=== PATIENT | female | born 1970 | race Caucasian/White ===

== ENCOUNTER 2023-02-22 19:35 | Emergency (ER) | payer MEDICARE, OTHER ==
[2023-02-22] MEDS ORDERED: MORPHINE SULFATE 4 MG/ML SYRINGE IVP STA (20:13)
[2023-02-22 21:06] LABS: Albumin 3.7 g/dL (3.5-5.0); Calcium 8.6 mg/dL (8.4-10.2); Potassium 3.8 mmol/L (3.5-5.1); Total Bilirubin 0.5 mg/dL (0.2-1.3); Total Protein 6.9 g/dL (6.3-8.2)
--- NOTE | 2023-02-22 21:26 | ED ---
Lower Extremity Injury HPI - General Chief Complaint: Extremity Injury, Lower Stated Complaint: Recheck Time Seen by Provider: 02/22/23 19:56 Source: patient Mode of arrival: wheelchair Limitations: no limitations - History of Present Illness Initial Comments: Patient is a 52-year-old female presenting with chief complaint of right foot and great toe pain. Patient states that yesterday she noticed a small area of redness to the great toe, today redness and pain has spread. She also notes swelling to the foot. She denies any known injury or trauma. No fevers or chills. She did have an episode of vomiting today. Patient has been experienc ing bilateral numbness and tingling over the last month. - Related Data Home Medications Medication Instructions Recorded Confirmed DULoxetine HCL [Cymbalta] 60 mg PO DAILY 02/22/23 02/22/23 Famotidine 40 mg PO DAILY PRN 02/22/23 02/22/23 Ibuprofen [Advil] 200 mg PO Q8HR PRN 02/22/23 02/22/23 LORazepam [Ativan] 1 mg PO BID 02/22/23 02/22/23 Levothyroxine Sodium [Synthroid] 150 mcg PO AC-BRKFST 02/22/23 02/22/23 Multivitamins, Thera [Multivitamin 1 tab PO DAILY 02/22/23 02/22/23 (formulary)] Rosuvastatin [Crestor] 10 mg PO DAILY 02/22/23 02/22/23 Allergies Allergy/AdvReac Type Severity Reaction Status Date / Time Penicillins Allergy Rash/Hives Verified 02/22/23 21:39 Review of Systems ROS Statement: Those systems with pertinent positive or pertinent negative responses have been documented in the HPI. ROS Other: All systems not noted in ROS Statement are negative. Past Medical History Past Medical History: Hyperlipidemia, Thyroid Disorder History of Any Multi-Drug Resistant Organisms: None Reported Past Surgical History: Back Surgery, Ear Surgery, Hysterectomy, Orthopedic Surgery Additional Past Surgical History / Comment(s): lt elbow,lt foot Past Psychological History: Anxiety Smoking Status: Former smoker Past Alcohol Use History: None Reported Past Drug Use History: None Reported General Exam Limitations: no limitations General appearance: alert, in no apparent distress Head exam: Present: atraumatic, normocephalic, normal inspection Eye exam: Present: normal appearance, EOMI. Absent: periorbital swelling Neck exam: Present: normal inspection, full ROM Respiratory exam: Present: normal lung sounds bilaterally. Absent: respiratory distress, wheezes, rales, rhonchi, stridor Cardiovascular Exam: Present: regular rate, normal rhythm, normal heart sounds. Absent: systolic murmur, diastolic murmur, rubs, gallop, clicks Right Foot/Toe exam: Present: tenderness, swelling, erythema Neurological exam: Present: alert, oriented X3, CN II-XII intact Psychiatric exam: Present: normal affect, normal mood Skin exam: Present: erythema (Right great toe and distal third of foot) Course Vital Signs 02/22/23 02/23/23 02/23/23 19:44 00:00 00:18 Temperature 97.9 F 97.6 F Pulse Rate 95 90 Respiratory 10 L 18 Rate Blood Pressure 132/84 161/90 O2 Sat by Pulse 100 94 L 96 Oximetry 02/23/23 02/23/23 02/23/23 00:25 00:32 00:38 Temperature 97.7 F 98.3 F 98.5 F Pulse Rate 92 92 97 Respiratory 18 18 18 Rate Blood Pressure 142/92 158/92 166/78 O2 Sat by Pulse 98 99 99 Oximetry 02/23/23 02/23/23 02/23/23 01:08 01:39 02:50 Temperature 97.8 F 97.8 F Pulse Rate 95 100 81 Respiratory 18 18 18 Rate Blood Pressure 163/95 137/93 135/80 O2 Sat by Pulse 100 100 99 Oximetry 02/23/23 03:30 Temperature Pulse Rate 76 Respiratory Rate Blood Pressure 132/94 O2 Sat by Pulse 96 Oximetry Medical Decision Making - Medical Decision Making Patient is a 52-year-old female presenting with chief complaint of atraumatic right foot pain. It started yesterday and was worsening today. On physical examination there is redness to the great toe as well as the distal portion of the foot. Tenderness to palpation. She describes to me that she has had progressive numbness of the bilateral feet and wounds which take months to heal. Lab work showed hemoglobin of 4.9, CBC 14.0. Hematocrit 18.4. CRP 20.8 and ESR 60. X-ray shows no evidence of osteomyelitis. Upon further questioning patient states that she takes 10 abdomen today for chronic pain. Suspect occult bleed. No other active bleeding at this time, denies vaginal bleeding, hematuria, rectal bleeding. CT of the abdomen and pelvis with contrast shows no acute process. We do not have GI services at this time. I spoke with Dr. Marcus from [facility] who accepted transfer. Patient is agreeable with this plan. I discussed this case with my attending Dr. Styles. Was pt. sent in by a medical professional or institution (, PA, EAR MOLD LABORATORY TECHNICIAN, urgent care, hospital, or fpc...) When possible be specific @ -No Did you speak to anyone other than the patient for history (EMS, parent, family, police, friend...)? What history was obtained from this source @ -No Did you review nursing and triage notes (agree or disagree)? Why? @ -I reviewed and agree with nursing and triage notes Were old charts reviewed (outside hosp., previous admission, EMS record, old EKG, old radiological studies, urgent care reports/EKG's, fpc records)? Report findings @ -No old charts were reviewed Differential Diagnosis (chest pain, altered mental status, abdominal pain women, abdominal pain men, vaginal bleeding, weakness, fever, dyspnea, syncope, headache, dizziness, GI bleed, back pain, seizure, CVA, palpatations, mental health, musculoskeletal)? @ -Differential Musculoskeletal Muscular strain, contusion, ligament sprain, fracture, arthritis, septic arthrit is, bursitis, cellulitis, muscle spasm, nerve compression, DVT, arterial occlusion, herpes zoster, electrolyte abnormality, tumor.... This is not meant to be in all inclusive list EKG interpreted by me (3pts min.). @ -As above X-rays interpreted by me (1pt min.). @ -X-ray shows no evidence of fracture there is diffuse soft tissue swelling CT interpreted by me (1pt min.). @ -CT of the abdomen and pelvis with contrast shows no acute process U/S interpreted by me (1pt. min.). @ -None done What testing was considered but not performed or refused? (CT, X-rays, U/S, labs)? Why? @ -None What meds were considered but not given or refused? Why? @ -None Did you discuss the management of the patient with other professionals (professionals i.e. , PA, EAR MOLD LABORATORY TECHNICIAN, lab, RT, psych nurse, social worker health services, build and deployment engineer, teacher, airframe technical officer, case planner)? Give summary @ -No Was smoking cessation discussed for >3mins.? @ -No Was critical care preformed (if so, how long)? @ -No Were there social determinants of health that impacted care today? How? (Lalit elessness, low income, unemployed, alcoholism, drug addiction, transportation, low edu. Level, literacy, decrease access to med. care, fci, rehab)? @ -No Was there de-escalation of care discussed even if they declined (Discuss DNR or withdrawal of care, Hospice)? DNR status @ -No What co-morbidities impacted this encounter? (DM, HTN, Smoking, COPD, CAD, Cancer, CVA, ARF, Chemo, Hep., AIDS, mental health diagnosis, sleep apnea, morbid obesity)? @ -None Was patient admitted / discharged? Hospital course, mention meds given and route, prescriptions, significant lab abnormalities, going to OR and other pertinent info. @ -Transferred, See above Undiagnosed new problem with uncertain prognosis? @ -No Drug Therapy requiring intensive monitoring for toxicity (Heparin, Nitro, Insulin, Cardizem)? @ -No Were any procedures done? @ -No Diagnosis/symptom? @ -Anemia Acute, or Chronic, or Acute on Chronic? @ -Acute Uncomplicated (without systemic symptoms) or Complicated (systemic symptoms)? @ -Complicated Side effects of treatment? @ -No Exacerbation, Progression, or Severe Exacerbation? @ -No Poses a threat to life or bodily function? How? (Chest pain, USA, ME, pneumonia, PE, COPD, DKA, ARF, appy, cholecystitis, CVA, Diverticulitis, Homicidal, Suicidal, threat to staff... and all critical care pts) @ -Yes Diagnosis/symptom? @Cellulitis Acute, or Chronic, or Acute on Chronic? @Acute Uncomplicated (without systemic symptoms) or Complicated (systemic symptoms)? @complicated Side effects of treatment? @ none Exacerbation, Progression, or Severe Exacerbation] @ no Poses a threat to life or bodily function? @Yes - Lab Data Result diagrams: 02/22/23 22:19 02/22/23 20:18 Lab Results 02/22/23 02/22/23 02/22/23 Range/Units 20:18 20:18 22:19 WBC 14.0 H (3.8-10.6) k/uL RBC 3.09 L (3.80-5.40) m/uL Hgb 4.9 L* (11.4-16.0) gm/dL Hct 18.4 L* (34.0-46.0) % MCV 59.7 L (80.0-100.0) fL MCH 16.0 L (25.0-35.0) pg MCHC 26.7 L (31.0-37.0) g/dL RDW 18.4 H (11.5-15.5) % Plt Count 617 H (150-450) k/uL MPV 6.3 Neutrophils % 82 % Lymphocytes % 11 % Monocytes % 4 % Eosinophils % 1 % Basophils % 0 % Neutrophils # 11.4 H (1.3-7.7) k/uL Lymphocytes # 1.5 (1.0-4.8) k/uL Monocytes # 0.5 (0-1.0) k/uL Eosinophils # 0.2 (0-0.7) k/uL Basophils # 0.0 (0-0.2) k/uL Hypochromasia Marked Poikilocytosis Slight Anisocytosis Slight Microcytosis Marked ESR 60 H (0-20) mm/hr Sodium 137 (137-145) mmol/L Potassium 3.8 (3.5-5.1) mmol/L Chloride 106 (98-107) mmol/L Carbon Dioxide 16 L (22-30) mmol/L Anion Gap 15 mmol/L BUN 12 (7-17) mg/dL Creatinine 1.06 H (0.52-1.04) mg/dL Est GFR (CKD-EPI)AfAm 70 (>60 ml/min/1.73 sqM) Est GFR (CKD-EPI)NonAf 61 (>60 ml/min/1.73 sqM) Glucose 107 H (74-99) mg/dL Calcium 8.6 (8.4-10.2) mg/dL Total Bilirubin 0.5 (0.2-1.3) mg/dL AST 30 (14-36) U/L ALT 28 (4-34) U/L Alkaline Phosphatase 184 H (38-126) U/L C-Reactive Protein 20.8 H (<1.0) mg/dL Total Protein 6.9 (6.3-8.2) g/dL Albumin 3.7 (3.5-5.0) g/dL Stool Occult Blood (Negative) Blood Type Blood Type Confirm O Positive Blood Type Recheck Bld Type Recheck Status Antibody Screen Crossmatch Spec Expiration Date 02/22/23 02/23/23 Range/Units 22:26 00:02 WBC (3.8-10.6) k/uL RBC (3.80-5.40) m/uL Hgb (11.4-16.0) gm/dL Hct (34.0-46.0) % MCV (80.0-100.0) fL MCH (25.0-35.0) pg MCHC (31.0-37.0) g/dL RDW (11.5-15.5) % Plt Count (150-450) k/uL MPV Neutrophils % % Lymphocytes % % Monocytes % % Eosinophils % % Basophils % % Neutrophils # (1.3-7.7) k/uL Lymphocytes # (1.0-4.8) k/uL Monocytes # (0-1.0) k/uL Eosinophils # (0-0.7) k/uL Basophils # (0-0.2) k/uL Hypochromasia Poikilocytosis Anisocytosis Microcytosis ESR (0-20) mm/hr Sodium (137-145) mmol/L Potassium (3.5-5.1) mmol/L Chloride (98-107) mmol/L Carbon Dioxide (22-30) mmol/L Anion Gap mmol/L BUN (7-17) mg/dL Creatinine (0.52-1.04) mg/dL Est GFR (CKD-EPI)AfAm (>60 ml/min/1.73 sqM) Est GFR (CKD-EPI)NonAf (>60 ml/min/1.73 sqM) Glucose (74-99) mg/dL Calcium (8.4-10.2) mg/dL Total Bilirubin (0.2-1.3) mg/dL AST (14-36) U/L ALT (4-34) U/L Alkaline Phosphatase (38-126) U/L C-Reactive Protein (<1.0) mg/dL Total Protein (6.3-8.2) g/dL Albumin (3.5-5.0) g/dL Stool Occult Blood Negative (Negative) Blood Type O Positive Blood Type Confirm Blood Type Recheck No Previous Record Bld Type Recheck Status CABO Indicated Antibody Screen NEGATIVE Crossmatch See Detail Spec Expiration Date 02/25/20232325 Disposition Clinical Impression: Anemia, Cellulitis Disposition: OTHER INSTITUTION NOT DEFINED Condition: Serious Referrals: Jon Zheng DO [Primary Care Provider] - 1-2 days Time of Disposition: 03:20 - Out of Hospital Transfer - Req. Specs Out of Hospital Transfer - Requested Specifics: Other Emergency Center ([facility])
--- NOTE | 2023-02-22 21:32 | XR ---
EXAMINATION TYPE: XR foot complete RT DATE OF EXAM: 02/22/2023 8:32 PM INDICATION: Patient age:Female; 52 years old; Reason for study: redness and swelling; PHH. COMPARISON: None TECHNIQUE: The right foot was examined in the AP, oblique, and lateral projections. FINDINGS: No evidence of any acute osseous pathology. Diffuse subcutaneous edema. No radiopaque foreign bodies. Mild degenerative changes of the proximal interphalangeal and distal interphalangeal joints as visua lized. IMPRESSION: 1. No evidence of acute fracture. 2. Diffuse soft tissue swelling of the foot. 3. Mild osteoarthritic changes.
[2023-02-22] MEDS ORDERED: LORazepam 2 MG/ML INJ IV STA (21:40)
[2023-02-22 21:41] LABS: C Reactive Protein 20.8 mg/dL (<1.0)
[2023-02-22] MEDS ORDERED: VANCOMYCIN IV PER PHARMACY 1 EACH MISC MISCELLANE PRN (22:17)
[2023-02-22] MEDS ORDERED: cefTRIAXone IN SWFI 1,000 MG/10 ML SYRINGE IVP STA (22:17)
[2023-02-22 22:37] LABS: Anisocytosis Slight; Basophils % (A) 0 %; Eosinophils # (A) 0.2 k/uL (0-0.7); Eosinophils % (A) 1 %; Hypochromasia Marked; Lymphocytes # (A) 1.5 k/uL (1.0-4.8); Lymphocytes % (A) 11 %; MCHC 26.7 g/dL (31.0-37.0); MCV 59.7 fL (80.0-100.0); Mean Platelet Volume 6.3; Microcytosis Marked; Monocytes # (A) 0.5 k/uL (0-1.0); Monocytes % (A) 4 %; Neutrophils # (A) 11.4 k/uL (1.3-7.7); Neutrophils % (A) 82 %; Platelet Count 617 k/uL (150-450); Poikilocytosis Slight; RBC 3.09 m/uL (3.80-5.40); RDW 18.4 % (11.5-15.5)
[2023-02-22 22:42] LABS: HCT 18.4 % (34.0-46.0); HGB 4.9 gm/dL (11.4-16.0)
[2023-02-22] MEDS ORDERED: HYDROmorphone 1 MG/ML 1 ML SYRINGE IVP STA (22:54)
[2023-02-22] MEDS ORDERED: VANCOMYCIN 1,750 MG in SODIUM CHLORIDE 0.9% 500 ML 500 ML IVPB ONE (23:00)
[2023-02-23 00:12] LABS: Erythrocyte Sedimentation Rate 60 mm/hr (0-20)
[2023-02-23 00:25] VITALS: RESP 18
--- NOTE | 2023-02-23 02:29 | CT ---
EXAM: CT Abdomen and Pelvis With Intravenous Contrast CLINICAL HISTORY: ITS.REASON CT Reason: low hgb, abd pain TECHNIQUE: Axial computed tomography images of the abdomen and pelvis with intravenous contrast. CTDI is 43.87 mGy and DLP is 1828 mGy-cm. This CT exam was performed using one or more of the following dose reduction techniques: automated exposure control, adjustment of the mA and/or kV according to patient size, and/or use of iterative reconstruction technique. COMPARISON: No relevant prior studies available. FINDINGS: Lung bases: Unremarkable. No mass. No consolidation. Mediastinum: Moderate hiatal hernia. ABDOMEN: Liver: Unremarkable. No mass. Gallbladder and bile ducts: Unremarkable. No calcified stones. No ductal dilation. Pancreas: Unremarkable. No mass. No ductal dilation. Spleen: Unremarkable. No splenomegaly. Adrenals: Unremarkable. No mass. Kidneys and ureters: 1 cm simple cyst arising off the upper pole of the left kidney. No further workup is required. No hydronephrosis. Stomach and bowel: Unremarkable. No obstruction. No mucosal thickening. PELVIS: Appendix: No findings to suggest acute appendicitis. Bladder: Unremarkable. No mass. Reproductive: Unremarkable as visualized. ABDOMEN and PELVIS: Intraperitoneal space: Unremarkable. No free air. No significant fluid collection. Bones/joints: Remote L1, L2, L3 compression fractures with prior vertebral augmentation. No dislocation. Soft tissues: Tiny periumbilical hernia. Vasculature: Unremarkable. No abdominal aortic aneurysm. Lymph nodes: Unremarkable. No enlarged lymph nodes. IMPRESSION: No acute findings in the abdomen or pelvis.
[2023-02-23] MEDS ORDERED: HYDROmorphone 1 MG/ML 1 ML SYRINGE IVP STA (03:33)
[2023-02-23 04:18] VITALS: BP 133/100; PULSE 95; TEMP 98.1
== END 2023-02-23 05:35 | disposition other institution (70) ==
LOC: EC 19:35
DX: L03.031 Cellulitis of right toe (principal); D64.9 Anemia, unspecified; E78.5 Hyperlipidemia, unspecified; E07.9 Disorder of thyroid, unspecified; F41.9 Anxiety disorder, unspecified; Z79.890 Hormone replacement therapy; Z79.899 Other long term (current) drug therapy; Z87.891 Personal history of nicotine dependence; Z88.0 Allergy status to penicillin
CPT/HCPCS: 99285 ×2; 96365 ×2; 96366 ×4; 96375 ×5; 96376 ×2; 36415; 86900; 86901; 80053; 85652; 85025; 86850; 86920; 86140; 82272; 73630; 74177; 36430; P9016; J3370; J2060; J2270; J0696; J1170 ×2; Q9967